=== PATIENT | male | born 1950 | race Caucasian/White ===

== ENCOUNTER → 2024-06-04 06:55 | Outpatient (REF) | payer MEDICARE, BC, SELFPAY ==
[2024-06-04 08:21] LABS: ALT (SGPT) 20 U/L (0-50); AST (SGOT) 23 U/L (17-59); Albumin 4.3 g/dl (3.5-5.0); Alkaline Phosphatase 61 U/L (38-126); Blood Urea Nitrogen 25 mg/dl (9-20); Calcium 9.5 mg/dl (8.4-10.2); Carbon Dioxide 25 mmol/L (22-30); Chloride 105 mmol/L (98-107); Glucose 92 mg/dl (70-99); HDL Cholesterol 86 mg/dl; LDL Cholesterol, Calculated 71 mg/dl; Sodium 141 mmol/L (135-145); Total Bilirubin 1.6 mg/dl (0.2-1.3); Total Cholesterol 173 mg/dl (50-199); Total Protein 6.8 g/dl (6.3-8.2); Triglyceride 84 mg/dl (10-149); Very Low Density Lipoprotein 16 mg/dl (0-30); eGFR > 60.00
[2024-06-04 08:25] LABS: Potassium 4.8 mmol/L (3.5-5.1)
== END ==
LOC: RCS 06:55
PROVIDERS: ATTENDING PHYSICIAN Internal Medicine Cardiovascular Disease; FAMILY PHYSICIAN Nurse Practitioner
DX: I27.20 Pulmonary hypertension, unspecified (principal); E78.2 Mixed hyperlipidemia
CPT/HCPCS: 36415; 80053; 80061; 93306

== ENCOUNTER 2024-10-08 06:20 | Day surgery (SDC) | payer MEDICARE, BC, SELFPAY | END 2024-10-08 14:41 | disposition home or self-care (01) | LOC: GI 06:20 | PROVIDERS: ATTENDING PHYSICIAN Internal Medicine Gastroenterology | PROC: 0DJD8ZZ Inspection of Lower Intestinal Tract, Via Natural or Artificial Opening Endoscopic (ICD-10-PCS; 2024-10-08) | DX: Z12.11 Encounter for screening for malignant neoplasm of colon (principal); K57.30 Diverticulosis of large intestine without perforation or abscess without bleeding; K64.8 Other hemorrhoids | CPT/HCPCS: G0121 ==

== ENCOUNTER 2024-11-16 18:25 | Emergency (ER) | payer MEDICARE, BC, SELFPAY ==
[2024-11-16 18:27] VITALS: BP 176/84
--- NOTE | 2024-11-16 20:07 | ED.GENMED ---
History of Present Illness
General
Chief Complaint: Abdominal Pain
Source: patient
Exam Limitations: none
Time Seen by Provider: 11/16/24 19:11
Nursing documentation reviewed up to this point in time: agreed with
History of Present Illness
History of Present Illness:
patient is a 74-year-old male history of BPH, very remote PE not anticoagulated, here for right lower quadrant pain that began around 8 PM last night. Patient says over the last 2 weeks to about a month he has noticed a decreased urinary stream.
He does have a enlarged prostate and has a urologist at [facility]. He called and made an appointment but his urologist was out of town so he saw somebody else in the office to weeks ago. He was noticing that he had some retraction of his penis and it
was felt that this was all related to weight gain and he was instructed to lose some weight. Patient says he had a UA at that time which was negative. Does not sound like they did a bladder scan to make sure he was not retaining. He has never had
a kidney stone. Last evening when the pain started it is localized to the right lower quadrant and nonradiating. It felt worse with movement especially getting up. Patient says he started an exercise program earlier that day and was doing some
leg lifts etc. He is not sure if he pulled a muscle. He was able to sleep overnight and woke up actually feeling better but the pain has returned. He also continues to feel that his urine stream is not normal. He is not having any fever, chills,
nausea, vomiting, diarrhea, dysuria, hematuria. There is no testicular pain or swelling. There is no obvious hernia. He had a remote appendectomy age 19
no anal intercourse
no rectal pressure
no rectal pain
no dischare
pt admits that he has urologist for ongoing sisues related to BPH and 'chroinc prostatitis'
he doesn't do well with abx
pt has had ongoign symptoms like this which are anxiety provoking
Past History
Past History
ED Past Medical History: Psychiatric (Situational anxiety) and Other (Pulmonary embolism February 2013, peripheral neuropathy)
ED Past Surgical History: None
Social History
Tobacco: Non-smoker
Alcohol: Occasional
Drug: None
Living: alone
Employment: Employed
Review of Systems
Review of Systems
Allergies reviewed?: Yes
All Other Systems: Not applicable
Phy Exam
Physical Exam
Physical Exam:
GENERAL: Alert , in no apparent distress looks comfortable seated
EYE: pupils equal and reactive
NECK: Supple
ENT: o/p clr, mmm.
CARDIAC: Regular rate and rhythm .
LUNGS: Clear breath sounds bilaterally, no acute respiratory distress, no wheezes/rales/rhonchi
ABDOMEN: Soft, moderate right lower quadrant tenderness and suprapubic tenderness, I do not appreciate an enlarged bladder,, I did do not appreciate any hernias, I was able to have the patient's stand and he had a lot more symptoms with pain
standing but again no hernia palpated, no scrotal edema or tenderness
NEUROLOGICAL: Alert and oriented, no focal neuro deficits
SKIN: Warm and dry, skin intact.
MUSCULOSKELETAL: No edema, well perfused.
PSYCH: Normal and appropriate interaction.
Course
Orders/Labs/Results
Orders:
Orders
11/16/24 19:56
CT Abd/Pel (IV only)-[facility] only Urgent
Comment: remote appe
Reason For Exam: RLQ pain, dec urine stream; very tender RLQ
Bladder Scan- Treatment ONCE
HYDROmorphone [Dilaudid] 0.5 mg IV NOW STA
11/16/24 20:24
Complete Blood Count/With Diff Urgent
Comprehensive Metabolic Panel Urgent
Lactic Acid Urgent
Urinalysis Reflex To Culture Urgent
Date Specimen was Collected: 11/16/24
Time Specimen was Collected: 20:10
Urine Microscopic Reflex Cult Urgent
Abnormal Lab Results
11/16/24
20:24
RBC 4.45 L 10^6/uL
(4.70-6.10)
BUN 22 H mg/dl
(9-20)
Ur Occult Blood Reflex 2+ A
(Negative)
11/16/24 20:24
11/16/24 20:24
Vital Signs
Initial and Last Documented VS:
Initial Vital Signs
Temp Pulse Resp BP Pulse Ox
36.3 C 74 18 176/84 99
11/16/24 18:27 11/16/24 18:27 11/16/24 18:27 11/16/24 18:27 11/16/24 18:27
Last Documented Vital Signs
Temp Pulse Resp BP Pulse Ox
36.3 C 70 18 134/74 99
11/16/24 18:27 11/16/24 23:40 11/16/24 23:40 11/16/24 23:40 11/16/24 23:40
MDM/Problems Addressed
Differential Diagnosis Includes:
prostatitis, uti, hernia, divertic
pulled muscles
MDM/Problems Addressed:
74 yo M
bph
chronic issues with prostate/urinary urgency or hesitancy or pressure
but last nigth ahd more pain in his R lwoer abdomen that got better
then today during new yoga class felt it worse
he doesn't usually do yoga so he could have pulled muscles
has some ongoing bph symptoms managed by [facility]
has had bad reactions to abx coverage previously and prefers less medication if necessary
no anal intercourse
well appearing
anxious
tender RLQ
no masses
no scrotal tendenress
prostate exam declined by pt
ua blood but no rbcs
wbcnormal
cr normal
CT shows maybe mild cystitis
stool in colon which is probably part of this issue too
pt refuses tot trent stool softeners
offered abx but pt declined
he doesn't tolerate them well
ua reassuring
he will reach back out to his urologist
in meantime, will try metamucil and miralax and tylenol for his pain
*Critical Care Note
Total Time (30-74mins, 75-104mins- exclusive of procedures): Not Applicable
ED Attending Note
-
Portions of this chart may have been created with voice recognition software.� Occasional wrong word or��sound alike� substitutions may have occurred due to the inherent limitations of voice recognition software.
Discharge Plan
Departure
Patient Disposition: Home (Routine Discharge)
Date of Disposition: 11/16/24
Time of Disposition: 23:03
Patient with high blood pressure during this ER visit?: No
Condition: Fair
Covid-19: Not Applicable
Discharge Problem:
Urinary hesitancy, BPH (benign prostatic hyperplasia), Constipation
Instructions: Benign prostatic hyperplasia (enlarged prostate), Constipation, Adult (DC)
Prescriptions:
No Action
meclizine 25 MG tablet
25 mg PO Q8HPRN PRN (Reason: vertigo) Qty: 15 1RF
Vitamin B12
1 tab PO .QOD
Vitamin C
1 tab PO DAILY
Aspirin 325 MG Tablet
325 mg PO DAILY
lorazepam 0.5 MG tablet
0.5 mg PO DAILY PRN (Reason: anxiety)
tamsulosin 0.4 MG capsule
0.4 mg PO BID
Referrals:
Tressa Richardson CRNP [Family Provider] - Follow up in 2-3 days
Activity Restrictions/Additional Instructions:
Were not entirely sure the cause of your symptoms but the findings on the CAT scan are that you have moderate stool in your colon and may be a mild bladder wall inflammation. But your urinalysis does look very reassuring that there is no infection.
We will send a culture on this to be sure that there is no bacteria, we will call you in 1 to 2 days if it is positive and you need antibiotics. In the meantime you should try to move up your urologist appointment. He should also try taking
Metamucil daily for maintenance for stool as well as MiraLAX 1 capful in 8 ounces of water either once or twice a day for 2 or 3 days in a row until you feel like you have cleaned out. Please avoid doing yoga/exercises for a few days to make sure
that in case this is musculoskeletal that it heals.
Return for fever, severe pain, inability to pee, rectal pressure, rectal discharge, vomiting or any concerns
Interventions
Interventions:
*Risk Screen - Suicide Last Done: 11/16/24 18:27
*General Assessment Last Done: 11/16/24 18:27
*Neglect/Abuse Screening Last Done: 11/16/24 20:30
*ED- Fall Risk Assessment Last Done: 11/16/24 18:27
*ED COVID-19 Vaccine History Last Done: 11/16/24 18:27
*Nursing Disposition Last Done: 11/16/24 23:40
EG-Wapqlf-Btnrbcjdhs Assessment Last Done: 11/16/24 20:30
Discharge Date and Time
Discharge Date/Time: 11/16/24 23:40
Print Language: GERMAN
[2024-11-16] MEDS: DILAUDID 0.5 MG IV (20:21)
[2024-11-16 20:34] LABS: % Basophils 0.4 % (0-2); % Eosinophils 2.1 % (0-6); % Immature Granulocytes 0.2 % (0-0.5); % Monocytes 8.3 % (1.7-9.3); Absolute Eosinophils 0.1 10^3/uL (0-0.7); Absolute Lymphocytes 2.3 10^3/uL (1.2-3.4); Absolute Monocytes 0.5 10^3/uL (0.1-0.6); Absolute Neutrophils 2.7 10^3/uL (1.4-6.5); Hematocrit 40.1 % (39.0-52.0); Hemoglobin 13.6 g/dL (13.0-18.0); Mean Corp Hgb Conc. 33.9 g/dL (33.0-37.0); Mean Corpuscular Hgb 30.6 pg (27.0-31.0); Mean Corpuscular Volume 90.1 fL (80.0-94.0); Mean Platelet Volume 9.5 fL (7.4-10.4); Nucleated Red Blood Cells % 0 % (-); Platelet Count 259 10^3/uL (130-400); Red Blood Cell Count 4.45 10^6/uL (4.70-6.10); Red Cell Dist. Width 13.7 % (11.5-14.5); White Blood Cell Count 5.7 10^3/uL (4.8-10.8)
[2024-11-16 20:42] LABS: Urine Albumin Negative (Neg - Trace); Urine Bilirubin Negative (Negative); Urine Character Clear (Clear); Urine Color Yellow; Urine Glucose Negative (Negative); Urine Ketone Negative (Negative); Urine Leukocyte Negative (Negative); Urine Nitrite Negative (Negative); Urine Occult Blood 2+ (Negative); Urine Specific Gravity 1.025 (<1.030); Urine Urobilinogen Negative (Neg - 1+)
[2024-11-16 20:48] LABS: ALT (SGPT) 19 U/L (0-50); AST (SGOT) 21 U/L (17-59); Albumin 4.5 g/dl (3.5-5.0); Alkaline Phosphatase 79 U/L (38-126); Blood Urea Nitrogen 22 mg/dl (9-20); Carbon Dioxide 25 mmol/L (22-30); Chloride 103 mmol/L (98-107); Glucose 95 mg/dl (70-99); Lactic Acid 0.7 mmol/L (0.7-2.0); Sodium 137 mmol/L (135-145); Total Bilirubin 1.2 mg/dl (0.2-1.3); Total Protein 6.9 g/dl (6.3-8.2); eGFR > 60.00
[2024-11-16 20:49] LABS: Urine Red Blood Cell 0-2 /HPF (0-2); Urine Squamous Cell 0-2 /LPF (Few); Urine White Cell 0-2 /HPF (0-5)
[2024-11-16 20:58] LABS: Calcium 9.4 mg/dl (8.4-10.2)
[2024-11-16 22:51] VITALS: BP 134/74
[2024-11-16 23:40] VITALS: BP 134/74
== END 2024-11-16 23:40 | disposition home or self-care (01) ==
LOC: EMR 18:25
PROVIDERS: Physician Assistant; EMERGENCY PHYSICIAN Emergency Medicine; FAMILY PHYSICIAN Nurse Practitioner
DX: R39.11 Hesitancy of micturition (principal); N40.1 Benign prostatic hyperplasia with lower urinary tract symptoms; K59.00 Constipation, unspecified; F41.9 Anxiety disorder, unspecified; Z86.711 Personal history of pulmonary embolism; Z90.49 Acquired absence of other specified parts of digestive tract
CPT/HCPCS: 99284; 96374; 74177; 80053; 81003; 81015; 83605; 85025; Q9967

== ENCOUNTER 2025-03-11 08:43 | Emergency (ER) | payer MEDICARE, BC, SELFPAY ==
[2025-03-11 08:55] VITALS: BP 161/85
--- NOTE | 2025-03-11 09:31 | ED.GENMED ---
History of Present Illness
General
Chief Complaint: Skin Surface Trauma
Source: patient
Exam Limitations: none
Time Seen by Provider: 03/11/25 09:07
Nursing documentation reviewed up to this point in time: agreed with
History of Present Illness
History of Present Illness:
74-year-old male with history as noted presents for evaluation of finger laceration. Patient was using garden clippers and unfortunately lacerated his right second finger. Came to the ER for evaluation. Unsure of his last tetanus.
Past History
Past History
ED Past Medical History: Psychiatric (Situational anxiety) and Other (Pulmonary embolism February 2013, peripheral neuropathy)
ED Past Surgical History: None
Social History
Tobacco: Non-smoker
Alcohol: Occasional
Drug: None
Living: alone
Employment: Employed
Review of Systems
Review of Systems
All Other Systems: ROS reviewed and negative except as documented in HPI and ROS
Skin: Reports other (Laceration)
Phy Exam
Physical Exam
Physical Exam:
General: Well appearing and non-toxic
HEENT: protecting airway
Neck: appears supple
CV: No evidence of cyanosis
Resp: No accessory muscle use
Abd: Non-distended
Extremities: No deformities
Neuro: Alert
Psych: Normal affect
Skin: Patient has approximately 2.5 cm V-shaped laceration on the palmar aspect of the right second digit between the MCP and PIP joint; no exposed flexor tendon on exploration through range of motion, no foreign body noted, good strength on flexion
of the finger�nothing to suggest occult tendon injury
Scores
Heart Failure Risk
Heart Failure Risk Score: Not Applicable
Heart Score for Chest Pain Patients
STEMI patient?: Not applicable
Withdrawal Assessment of Alcohol
Withdrawal Assessment Completed?: Not applicable
Course
Orders/Labs/Results
Orders:
Orders
03/11/25 09:07
Tetanus/Diphth/Acelpertussis [Adacel] 0.5 ml IM .ONCE ONE
Vital Signs
Initial and Last Documented VS:
Initial Vital Signs
Temp Pulse Resp BP Pulse Ox
36.6 C 68 16 161/85 99
03/11/25 08:55 03/11/25 08:55 03/11/25 08:55 03/11/25 08:55 03/11/25 08:55
Last Documented Vital Signs
Temp Pulse Resp BP Pulse Ox
36.6 C 68 16 161/85 99
03/11/25 08:55 03/11/25 08:55 03/11/25 08:55 03/11/25 08:55 03/11/25 09:35
Procedures
Laceration Closure
Right Second Finger:
Status of Wound: dirty
Size of Wound in cm: 2.5
Description of Wound Edges: flap-well vascularized
Preparation: cleaned with Betadine
Anesthesia: 1% Lidocaine and Digital-Regional
Revision/Debridement: routine- no revision
Wound exploration: explored to base- no FB and no tendon involvement
Type of Closure: single layer closure
Skin Closure Material: 5-0 nylon (7)
Number of sutures: 7
MDM/Problems Addressed
Differential Diagnosis Includes:
Laceration
MDM/Problems Addressed:
74-year-old male presents with laceration to the index finger. No signs of tendon injury. No foreign body. Will update tetanus here. Will irrigate and repair laceration.
*Pulse Oximetry
SaO2: 99
Oxygen Mode of Delivery: Room air
Patient hypoxic: no (99%)
*Critical Care Note
Total Time (30-74mins, 75-104mins- exclusive of procedures): Not Applicable
Data Reviewed
Source: patient
ED Attending Note
-
Portions of this chart may have been created with voice recognition software.� Occasional wrong word or��sound alike� substitutions may have occurred due to the inherent limitations of voice recognition software.
Discharge Plan
Departure
Patient Disposition: Home (Routine Discharge)
Date of Disposition: 03/11/25
Time of Disposition: 10:15
Patient with high blood pressure during this ER visit?: Yes
Discharge Problem:
Finger laceration
Instructions: Laceration Repair With Stitches (DC)
Prescriptions:
No Action
meclizine 25 MG tablet
25 mg PO Q8HPRN PRN (Reason: vertigo) Qty: 15 1RF
Vitamin B12
1 tab PO .QOD
Vitamin C
1 tab PO DAILY
Aspirin 325 MG Tablet
325 mg PO DAILY
lorazepam 0.5 MG tablet
0.5 mg PO DAILY PRN (Reason: anxiety)
tamsulosin 0.4 MG capsule
0.4 mg PO BID
Referrals:
Tressa Richardson CRNP [Family Provider, Family Practice] - Follow up in 1 week
Activity Restrictions/Additional Instructions:
You came to the emergency room for a finger laceration which was repaired with stitches. Your stitches must be removed in 1 week. You can either go to your primary doctor, return here to the emergency room, or go to urgent care to have your
stitches removed. If you notice any signs of infection please return immediately to the emergency room.
Thank you for visiting the Emergency Department at [facility].
1. Please schedule a follow up appointment as directed. Call first thing tomorrow morning to make an appointment.
2. If indicated, please take your medications as instructed and indicated on discharge paperwork.
3. If any of your symptoms do not improve, or persist, or become more severe within 6-12 hours, please return to the emergency department for further care.
4. Please return to the emergency department if you develop a headache, neck pain/stiffness, fever greater than 100.4F, chest pain, shortness of breath, persistent nausea, vomiting, slurred speech, difficulty walking, numbness/tingling, weakness,
signs of infection or any other symptoms that are worrisome to you.
Please call [phone] if you have any questions.
Interventions
Interventions:
*Risk Screen - Suicide Last Done: 03/11/25 08:55
*Neglect/Abuse Screening Last Done: 03/11/25 08:55
ED-Skin Assessment Last Done: 03/11/25 09:36
Discharge Date and Time
Print Language: CUBAN
[2025-03-11] MEDS: ADACEL 0.5 ML IM (09:33)
== END 2025-03-11 10:20 | disposition home or self-care (01) ==
LOC: EMR 08:43
PROVIDERS: EMERGENCY PHYSICIAN Emergency Medicine; FAMILY PHYSICIAN Nurse Practitioner
DX: S61.210A Laceration without foreign body of right index finger without damage to nail, initial encounter (principal); W27.1XXA Contact with garden tool, initial encounter; Z23 Encounter for immunization; Z86.711 Personal history of pulmonary embolism
CPT/HCPCS: 12001; 90471; 99282; 90715

== ENCOUNTER 2025-08-26 09:07 | Outpatient (RCR) | payer MEDICARE, BC, SELFPAY | END 2025-08-26 23:59 | disposition home or self-care (01) | LOC: RPT 09:07 | PROVIDERS: ATTENDING PHYSICIAN Psychiatry & Neurology Neurology; FAMILY PHYSICIAN Nurse Practitioner | DX: G20.A1 Parkinson's disease without dyskinesia, without mention of fluctuations (principal); Z73.6 Limitation of activities due to disability; R26.89 Other abnormalities of gait and mobility | CPT/HCPCS: 97110; 97112; 97162; 97166; 97530; 97535 ==